=== PATIENT | female | born 1950 | race Caucasian/White ===

== ENCOUNTER → 2021-02-03 | Outpatient (CLI) | payer MEDICARE, OTHER | LOC: KOH-I 12:49 | DX: M51.27 Other intervertebral disc displacement, lumbosacral region (principal) | CPT/HCPCS: 72146; 72148 ==

== ENCOUNTER → 2021-09-29 | Outpatient (CLI) | payer MEDICARE, OTHER ==
[2021-09-30 06:10] LABS: CALCIUM, SERUM 9.4 mg/dL (8.7-10.3); CREATININE, SERUM 0.71 mg/dL (0.57-1.00); POTASSIUM, SERUM 4.3 mmol/L (3.5-5.2)
== END ==
LOC: LAB 15:26
PROVIDERS: Obstetrics & Gynecology
DX: M81.0 Age-related osteoporosis without current pathological fracture (principal)
CPT/HCPCS: 36415; 80048

== ENCOUNTER → 2021-10-22 | Outpatient (CLI) | payer MEDICARE, OTHER ==
[~2021-10-22] VITALS: Ht 165.1 cm; Wt 56.7 kg
== END ==
LOC: OPSV 10-15 12:00
DX: M81.0 Age-related osteoporosis without current pathological fracture (principal)
CPT/HCPCS: 96365; J3489

== ENCOUNTER 2021-11-11 16:47 | Emergency (ER) | payer MEDICARE, OTHER ==
[2021-11-11 17:31] LABS: HEMOGLOBIN 13.3 gm/dl (12.3-15.3); RED BLOOD COUNT 3.96 M/UL (4.00-5.10)
[2021-11-11 18:01] LABS: BUN/CREATININE RATIO 9 (0-10)
[2021-11-11] MEDS ORDERED: PROAIR HFA8.5 GM INH (19:26)
[2021-11-11] MEDS ORDERED: ALBUTEROL2.5 MG/3 M INH (19:26)
[2021-11-11] MEDS ORDERED: PREDNISONE 20 M20 MG PO (19:26)
== END 2021-11-11 19:49 | disposition home or self-care (01) ==
LOC: ER1 16:47
PROVIDERS: Nurse Practitioner
DX: J45.901 Unspecified asthma with (acute) exacerbation (principal); J20.9 Acute bronchitis, unspecified; R91.1 Solitary pulmonary nodule; Z90.710 Acquired absence of both cervix and uterus; I10 Essential (primary) hypertension; Z20.822 Contact with and (suspected) exposure to COVID-19
CPT/HCPCS: 0240U; 71045; 80053; 81001; 82550; 82553; 84484; 85025; 93005; 94640; 94664; 96374; 99285; J2930

== ENCOUNTER → 2021-11-13 | Outpatient (CLI) | payer MEDICARE, OTHER ==
[~2021-11-13] MED LIST: ALBUTEROL2.5 MG/3 M INH; PREDNISONE 20 M20 MG PO; PROAIR HFA8.5 GM INH
== END ==
LOC: RAD 12:35
DX: J98.8 Other specified respiratory disorders (principal); R91.1 Solitary pulmonary nodule
CPT/HCPCS: 71046

== ENCOUNTER → 2022-05-24 | Outpatient (CLI) | payer MEDICARE, OTHER ==
[2022-05-24 11:19] LABS: HEMOGLOBIN 13.8 gm/dl (12.3-15.3); RED BLOOD COUNT 3.86 M/UL (4.00-5.10); WHITE BLOOD COUNT 4.5 K/UL (4.5-11.0)
[2022-05-24 11:48] LABS: BUN/CREATININE RATIO 15 (0-10)
== END ==
LOC: LAB 10:33
PROVIDERS: Nurse Practitioner Family
DX: Z13.1 Encounter for screening for diabetes mellitus (principal); I10 Essential (primary) hypertension; E07.9 Disorder of thyroid, unspecified
CPT/HCPCS: 36415; 80053; 80061; 84439; 84443; 85027